=== PATIENT | male | born 1975 | race Two or more races ===

== ENCOUNTER 2021-10-26 18:13 | Emergency (ER) | payer MEDICAID ==
[~2021-10-26] VITALS: Ht 172.7 cm; Wt 86.0 kg
[2021-10-26 21:55] VITALS: BP 160/104
== END 2021-10-26 22:00 | disposition home or self-care (01) ==
LOC: ER 18:13
DX: R21 Rash and other nonspecific skin eruption (principal); S20.319A Abrasion of unspecified front wall of thorax, initial encounter; X58.XXXA Exposure to other specified factors, initial encounter; Y93.89 Activity, other specified; Y92.89 Other specified places as the place of occurrence of the external cause; Y99.8 Other external cause status
CPT/HCPCS: 99281

== ENCOUNTER 2023-12-30 20:39 | Emergency (ER) | payer MEDICAID ==
[~2023-12-30] VITALS: Ht 180.3 cm; Wt 90.0 kg
[2023-12-30 20:44] VITALS: TEMP 37.00296
[2023-12-30 20:52] VITALS: O2SAT 89
[2023-12-30] MEDS: FENTANYL CITRATE/PF 50MCG/ML 2ML VIAL IV ONE (21:00)
[2023-12-30 21:02] LABS: POTASSIUM 3.3 mEq/L (3.5-5.1)
[2023-12-30 21:03] LABS: BASOPHILS % 0.3 % (0.0-2.0); DIFFERENTIAL COMMENT 0; EOSINOPHILS % 1.5 % (0.0-5.0); HEMATOCRIT. 42.5 % (42.0-52.0); HEMOGLOBIN. 14.8 g/dL (14.0-18.0); LYMPHOCYTES % 43.5 % (20.0-50.0); MEAN CORPUSCULAR HEMOGLOBIN 37.4 pg (28.0-32.0); MEAN CORPUSCULAR HGB CONC 34.7 g/dL (31.0-37.0); MEAN CORPUSCULAR VOLUME 107.6 fL (80.0-94.0); MEAN PLATELET VOLUME 8.8 fl (7.4-10.4); MONOCYTES % 8.7 % (2.0-8.0); PLATELET 268 x1000/uL (130-400); RED BLOOD CELL COUNT 3.95 mill/uL (4.7-6.1); RED CELL DISTRIBUTION WIDTH 12.5 % (11.6-14.6); WHITE BLOOD COUNT 6.6 x1000/uL (4.5-11.0)
[2023-12-30 21:04] LABS: CALCIUM 8.8 mg/dL (8.7-10.4)
[2023-12-30 21:08] LABS: CREATININE 1.3 mg/dL (0.6-1.3)
[2023-12-30 21:14] VITALS: BP 124/84; PULSE 86; RESP 18; O2SAT 100
[2023-12-30 21:19] LABS: INR 0.9; PARTIAL THROMBOPLASTIN TIME 21.2 sec (23.4-31.0); PROTHROMBIN TIME 9.8 sec (9.6-11.0)
== END 2023-12-30 21:14 | disposition short-term general hospital (02) ==
LOC: ER 20:39
DX: S41.132A Puncture wound without foreign body of left upper arm, initial encounter (principal); X58.XXXA Exposure to other specified factors, initial encounter; Y93.89 Activity, other specified; Y92.89 Other specified places as the place of occurrence of the external cause; Y99.8 Other external cause status
CPT/HCPCS: 99291; 96374; 80048; 83690; 85025; 85610; 85730; 86850; 86900; 86901; 36415; 71045; J3010

== ENCOUNTER 2024-09-18 17:35 | Emergency (ER) | payer MEDICAID ==
[~2024-09-18] VITALS: Ht 172.7 cm; Wt 86.2 kg
[2024-09-18 17:40] VITALS: O2SAT 99
[2024-09-18 17:43] VITALS: BP 169/96; PULSE 89; RESP 16; TEMP 36.6; O2SAT 100
[2024-09-18] MEDS: KETOROLAC 15MG/ML VIAL IM ONE (19:20)
[2024-09-18] MEDS: CYCLOBENZAPRINE 10MG TABLET PO ONE (19:20)
[2024-09-18] MEDS: LIDOCAINE 5% PATCH TOP SCH (19:21)
[2024-09-18] MEDS ORDERED: LIDO-53 TP (20:47)
[2024-09-18] MEDS ORDERED: CYCL10TA21 MT (20:47)
[2024-09-18] MEDS ORDERED: NAPR-1176 MT (20:47)
== END 2024-09-18 21:02 | disposition home or self-care (01) ==
LOC: ER 17:35
DX: M54.2 Cervicalgia (principal); M54.9 Dorsalgia, unspecified; Z79.1 Long term (current) use of non-steroidal anti-inflammatories (NSAID); Z79.899 Other long term (current) drug therapy
CPT/HCPCS: 99283; 96372; J1885